=== PATIENT | female | born 1955 | race Caucasian/White ===

== ENCOUNTER 2019-08-13 09:28 | Emergency (ER) | payer OTHER, MEDICARE ==
--- NOTE | 2019-08-13 09:47 | PDOC ---
History of Present Illness - General Chief Complaint: Palpitations Stated Complaint: PALPITATIONS Time Seen by Provider: 08/13/19 09:42 History Source: Patient (Patient walked in complaining of palpitations in the chest 2 days after having left eye cataract surgery and taking eye drops post op..Patient concerned about her heart condition since diagnosed with hypertrophic cardiomyopathy, and her brother dying for same when he was 40.) Exam Limitations: No Limitations - History of Present Illness Presenting Symptoms: Other (Chest palpitations) Timing/Duration: reports: resolved prior to arrival Severity/Quality: reports: mild, moderate Location: reports: substernal Chest Pain Radiation: reports: no radiation Activities at Onset: reports: none Past History - Past Medical History Allergies/Adverse Reactions: Allergies Allergy/AdvReac Type Severity Reaction Status Date / Time ELDERBERRY Allergy Uncoded 08/13/19 09:35 Home Medications: Ambulatory Orders Latanoprost 0.005% Eye Drops [Xalatan 0.005% Eye Drops -] 1 drop OS HS 01/16/15 Dorzolamide HCl [Trusopt 2%] 1 drop OD BID 08/13/19 Famotidine [Pepcid -] 20 mg PO HS 08/13/19 Skip/Polymyx B Sulf/Dexameth [Maxitrol Eye Drops -] 2 drop OS QID 08/13/19 Cardiac Disorders: Yes (HCM -ENLARGED HEART) Hypercholesterolemia: Yes - Psycho Social/Smoking Cessation Hx Smoking History: Never smoked Hx Alcohol Use: Yes (SOCIAL) Substance Use Type: None *Physical Exam - Vital Signs Last Vital Signs Temp Pulse Resp BP Pulse Ox 98.0 F 76 15 118/62 99 08/13/19 09:30 08/13/19 12:00 08/13/19 12:00 08/13/19 12:00 08/13/19 12:00 ED Treatment Course - LABORATORY CBC & Chemistry Diagram: 08/13/19 10:30 08/13/19 10:30 - ADDITIONAL ORDERS Additional order review: Laboratory Results 08/13/19 08/13/19 10:30 10:30 Sodium 138 Potassium 3.8 Chloride 101 Carbon Dioxide 30 Anion Gap 7 L BUN 11.0 Creatinine 0.6 Est GFR (CKD-EPI)AfAm 110.86 Est GFR (CKD-EPI)NonAf 95.65 Random Glucose 102 Calcium 10.0 Magnesium 1.9 Total Bilirubin 0.7 AST 21 ALT 20 Alkaline Phosphatase 58 Creatine Kinase 44 Troponin I < 0.03 Total Protein 6.9 Albumin 4.5 08/13/19 10:30 RBC 4.95 MCV 92.0 MCHC 33.7 RDW 12.3 MPV 8.3 Neutrophils % 68.9 Lymphocytes % 24.5 Monocytes % 4.6 Eosinophils % 1.2 Basophils % 0.8 - RADIOLOGY Radiology Studies Ordered: Category Date Time Status CHEST X-RAY PORTABLE* [RAD] Stat Radiology 08/13/19 10:04 Completed Discharge - Discharge Information Problems reviewed: Yes Clinical Impression/Diagnosis: Palpitations Condition: Improved Disposition: HOME - Admission No - Additional Discharge Information Prescription Drug Monitoring Program (I-STOP) results: I-STOP reviewed and no issues identified - Follow up/Referral Referrals: Yosvany Mcintosh MD [Primary Care Provider] - - Patient Discharge Instructions Patient Printed Discharge Instructions: DI for Palpitations Additional Instructions: Avoid any stimulants: coffee, cold medications Follow up with your doctor or returm to ER if more symtoms - Post Discharge Activity
[2019-08-13 09:59] VITALS: TEMP 98; BMI 23.4
[2019-08-13 11:12] LABS: BASO % 0.8 % (0-2.0); EOS % 1.2 % (0-4.5); HEMATOCRIT 45.6 % (32.4-45.2); HEMOGLOBIN 15.4 GM/dl (10.7-15.3); LYMPH % 24.5 % (8-40); MCHC 33.7 g/dl (32.0-36.0); MEAN PLT VOLUME 8.3 fl (7.5-11.1); MONO % 4.6 % (3.8-10.2); NEUT % 68.9 % (42.8-82.8); PLATELET COUNT 304 K/MM3 (134-434); RBC 4.95 M/mm3 (3.60-5.2); RDW 12.3 % (11.6-15.6); WHITE BLOOD COUNT 5.4 K/mm3 (4.0-10.8)
[2019-08-13 11:16] LABS: ALBUMIN 4.5 g/dl (3.4-5.0); BILIRUBIN,TOTAL 0.7 mg/dl (0.2-1); CREATININE 0.6 mg/dl (0.55-1.3); MAGNESIUM 1.9 mg/dL (1.8-2.4); POTASSIUM 3.8 mmol/L (3.5-5.1); TOT PROT 6.9 g/dl (6.4-8.2)
[2019-08-13 12:15] VITALS: BP 118/62; PULSE 76
--- NOTE | 2019-08-14 09:46 | EKG ---
Test Reason : Blood Pressure : / mmHG Vent. Rate : 070 BPM Atrial Rate : 070 BPM P-R Int : 130 ms QRS Dur : 088 ms QT Int : 398 ms P-R-T Axes : 068 -19 040 degrees QTc Int : 429 ms NORMAL SINUS RHYTHM INCOMPLETE RBBB NO PREVIOUS ECGS AVAILABLE Confirmed by LISBETH JEAN-BAPTISTE MD ([id number]) on 08/14/2019 9:45:49 AM Referred By: Confirmed By:LISBETH JEAN-BAPTISTE MD
== END 2019-08-13 13:07 | disposition home or self-care (01) ==
LOC: FER 09:28
DX: R00.2 Palpitations (principal); E78.00 Pure hypercholesterolemia, unspecified; Z88.8 Allergy status to other drugs, medicaments and biological substances
CPT/HCPCS: 36415; 71045-TC-FY; 80053; 82550; 83735; 84443; 84484; 85025; 93005; 99285-25

== ENCOUNTER 2019-10-09 23:02 | Emergency (ER) | payer OTHER, MEDICARE ==
[2019-10-09 23:10] VITALS: BMI 23.4
[2019-10-09 23:15] VITALS: BP 123/71; PULSE 73; TEMP 97.6
--- NOTE | 2019-10-09 23:23 | PDOC ---
History of Present Illness - General Chief Complaint: Pain Stated Complaint: LUMP BEHIND LEFT KNEE Time Seen by Provider: 10/09/19 23:11 History Source: Patient Exam Limitations: No Limitations - History of Present Illness Initial Comments: 10/09/19 23:19 This is a 63-year-old female who comes in complaining of pain posterior the times about 4 days. Patient states she noticed a lump in the area and it is uncomfortable. Patient does spend a lot of time standing on hard surfaces. Patient otherwise denies any recent travel any DVT risk factors. Patient has no family history of DVT and no hypercoagulable risk factors. Allergies: as per nursing notes Past Medical History: none Social history: Lives with family. No smoking. No alcohol. No illicit drugs. Surgical history: None General: No fevers or chills, no weakness, no weight loss HEENT: No change in vision. No sore throat,. No ear pain CardioVascular: no chest discomfort. No shortness of breath Respiratory:No cough, or wheezing. Gastrointestinal: no nausea, vomiting, diarrhea or constipation, No rectal bleeding Genitourinary: No dysuria, hematuria, or frequency Musculoskeletal: Swelling behind left knee Neurologic: No headache, vertigo, dizziness or loss of consciousness Psychiatric: nor depression Skin: No rashes or easy bruising Endocrine: no increased thirst or abnormal weight change Allergic: no skin or latex allergy All other systems reviewed and normal GENERAL: The patient is awake, alert, and fully oriented, in no acute distress. HEAD: Normal with no signs of trauma. EYES: Pupils equal, round and reactive to light, extraocular movements intact, sclera anicteric, conjunctiva clear. EXTREMITIES:atraumatic, Normal range of motion, no edema. Left knee: There is some tenderness to palpation of the posterior knee with a sensation of fullness. Neurovascular distally is intact there is no tender palpable cord, there is no swelling of the foot or leg. NEUROLOGICAL: Normal speech, normal gait. PSYCH: Normal mood, normal affect. SKIN: Warm, Dry, normal turgor, no rashes or lesions noted. Assessment and plan: This is a 63-year-old female with some tenderness and swelling behind the left knee. Patient has no risk factors for DVT. Given the fact that. 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 Patient reassured discharged and told to follow-up with her primary care doctor next week for an ultrasound in addition to that I recommended she get a compression sleeve to put over her knee and that area. Past History - Past Medical History Allergies/Adverse Reactions: Allergies Allergy/AdvReac Type Severity Reaction Status Date / Time MOSES Allergy Uncoded 08/13/19 09:35 Home Medications: Ambulatory Orders Famotidine [Pepcid -] 40 mg PO HS 08/13/19 Bisoprolol Fumarate 2.5 mg PO DAILY 10/09/19 Simvastatin 20 mg PO Q2D 10/09/19 Cardiac Disorders: Yes (HCM -ENLARGED HEART) COPD: No Hypercholesterolemia: Yes - Psycho Social/Smoking Cessation Hx Smoking History: Never smoked Hx Alcohol Use: Yes (SOCIAL) Drug/Substance Use Hx: No Substance Use Type: None *Physical Exam - Vital Signs Last Vital Signs Temp Pulse Resp BP Pulse Ox 97.6 F 73 16 123/71 98 10/09/19 23:07 10/09/19 23:07 10/09/19 23:07 10/09/19 23:07 10/09/19 23:07 Discharge - Discharge Information Problems reviewed: Yes Clinical Impression/Diagnosis: Posterior knee pain Qualifiers: Laterality: left Qualified Code(s): M25.562 - Pain in left knee Condition: Stable Disposition: HOME - Admission No - Follow up/Referral Referrals: Yosvany Mcintosh MD [Primary Care Provider] - - Patient Discharge Instructions Additional Instructions: Take Tylenol or Motrin as needed for the pain. Purchase a compression sleeve for the knee and wear especially if he is spending a lot of time standing. Return to the emergency department immediately with ANY new, persistent or worsening symptoms. Continue any medications as previously prescribed by your physician. You should follow up with your primary doctor as soon as possible regarding today's emergency department visit. . Please make sure your doctor reviews the results of your emergency evaluation. Thank you for coming to the Emergency Department today for your care. It was a pleasure to see you today. Please note that your evaluation is INCOMPLETE until you follow-up with your doctor. - Post Discharge Activity
== END 2019-10-09 23:25 | disposition home or self-care (01) ==
LOC: FER 23:02
DX: M25.562 Pain in left knee (principal); Z88.8 Allergy status to other drugs, medicaments and biological substances; E78.00 Pure hypercholesterolemia, unspecified; I51.9 Heart disease, unspecified
CPT/HCPCS: 99282-25

== ENCOUNTER 2021-01-30 19:40 | Inpatient (IN) | payer OTHER, MEDICARE ==
[2021-01-30] MEDS ORDERED: ONDANSETRON 4 MG/2 ML VIAL IVPB ONE (20:30)
[2021-01-30] MEDS ORDERED: SODIUM CHLORIDE 1,000 ML IV STA (20:30)
[2021-01-30] MEDS ORDERED: ONDANSETRON 4 MG/2 ML VIAL ONE (20:34)
[2021-01-30 21:04] LABS: HEMATOCRIT 41.7 % (32.4-45.2); HEMOGLOBIN 14.1 GM/dl (10.7-15.3); MCH 31.2 pg (25.7-33.7); MCHC 33.9 g/dl (32.0-36.0); MEAN PLT VOLUME 8.4 fl (7.5-11.1); PLATELET COUNT 300 K/MM3 (134-434); RBC 4.53 M/mm3 (3.60-5.2); RDW 12.4 % (11.6-15.6); WHITE BLOOD COUNT 7.8 K/mm3 (4.0-10.8)
[2021-01-30 21:18] LABS: ADD RBC MORPHOLOGY YES
[2021-01-30 21:24] LABS: ALBUMIN 4.4 g/dl (3.4-5.0); BILIRUBIN,TOTAL 0.9 mg/dl (0.2-1); CALCIUM 9.1 mg/dl (8.5-10); CREATININE 0.5 mg/dl (0.55-1.3); POTASSIUM 4.1 mmol/L (3.5-5.1); TOT PROT 6.6 g/dl (6.4-8.2)
[2021-01-30 21:35] LABS: PLATELET ESTIMATE ADEQUATE
[2021-01-31 01:27] VITALS: BMI 23.8
[2021-01-31] MEDS ORDERED: ONDANSETRON 4 MG/2 ML VIAL IVPUSH PRN (05:59)
[2021-01-31] MEDS ORDERED: SODIUM CHLORIDE 1,000 ML IV SCH (06:00)
[2021-01-31] MEDS ORDERED: METOPROLOL TARTRATE 5 MG/5 ML VIAL IVPUSH PRN (06:01)
[2021-01-31 07:57] LABS: ACTIVATED PTT 27.7 SECONDS (25.2-36.5)
[2021-01-31 08:02] LABS: INR 1.16 (0.82-1.09); PROTHROMBIN TIME (PATIENT) 12.9 SEC (10.2-13.0)
[2021-01-31] MEDS ORDERED: PATIENT'S OWN MEDICATION (NON-FORMULARY) (Bisoprolol Fumarate [Bisoprolol Fumarate] 5 MG T PO SCH (17:00)
[2021-01-31 18:02] VITALS: BP 102/56; PULSE 84; TEMP 98.3
[2021-01-31] MEDS ORDERED: ROSUVASTATIN CA 5 MG TABLET (FP) PO SCH (22:00)
[2021-01-31] MEDS ORDERED: FAMOTIDINE 20 MG TABLET PO SCH (22:00)
== END 2021-01-31 20:25 | disposition home or self-care (01) | DRG 389 ==
LOC: FER 19:40 → FM/S 22:29 → UNDOADMIN 01-31 00:43 → FM/S 01-31 00:43 → UNDODISIN 01-31 20:25
PROVIDERS: ADMIT Internal Medicine; ATTEND Nurse Practitioner Acute Care
DX: K56.609 Unspecified intestinal obstruction, unspecified as to partial versus complete obstruction (principal); I42.2 Other hypertrophic cardiomyopathy; K21.9 Gastro-esophageal reflux disease without esophagitis; I10 Essential (primary) hypertension; E78.5 Hyperlipidemia, unspecified
CPT/HCPCS: 36415; 74019-TC-FY; 74176-TC; 80053; 82550; 83605; 83690; 84484; 85025; 85610; 85730; 86850; 86900; 86901; 99285-25; C9803; U0003